=== PATIENT | female | born 1995 | race Caucasian/White ===

== ENCOUNTER 2021-11-18 08:24 | Outpatient (CLI) | payer BC | END 2021-11-18 08:25 | disposition home or self-care (01) | LOC: MRI 08:24 | PROVIDERS: ATTEND Orthopaedic Surgery | DX: M25.562 Pain in left knee (principal); Z98.890 Other specified postprocedural states ==

== ENCOUNTER 2022-07-14 15:49 | Outpatient (CLI) | payer BC | END 2022-07-14 15:50 | disposition home or self-care (01) | LOC: BICRAD 15:49 | PROVIDERS: ATTEND Family Medicine | DX: M25.532 Pain in left wrist (principal) ==

== ENCOUNTER 2023-11-11 19:58 | Inpatient (IN) | payer BC ==
[2023-11-11] MEDS ORDERED: Ondansetron PF 4 MG/2 ML Vial ONE (20:23)
[2023-11-11] MEDS ORDERED: Morphine 4 MG/ML VIAL ONE (20:23)
[2023-11-11 21:01] LABS: #Basophils 0.06 10x3/uL (0.0-0.2); %Basophils 0.6 % (0.0-1.0); %Eosinophils 1.2 % (0.0-10.0); %Lymphocytes 18.6 % (21.0-51.0); %Monocytes 6.9 % (0.0-10.0); %Neutrophils 72.3 % (42.0-75.0); Hemoglobin 13.8 g/dL (12.0-16.0); Mean Corpuscular HGB CONC 33.7 g/dL (32.0-36.0); Mean Corpuscular Hemoglobin 30.3 pg (27.0-31.0); Mean Corpuscular Volume 89.9 fL (78.0-98.0); Mean Platelet Volume 9.3 fL (7.4-10.4); Platelet Count 333 10x3/uL (130-400); RBC Distribution Width 12.5 % (11.5-14.5); Red Blood Cell (RBC) Count 4.56 mill/uL (4.20-5.40)
[2023-11-11 21:13] LABS: ALT (SGPT) 12 U/L (8-55); AST (SGOT) 12 U/L (5-34); Albumin 3.7 g/dL (3.5-5.0); Alkaline Phosphatase 60 U/L (40-110); Anion Gap 14 mmol/L (10-20); BUN (Urea Nitrogen) 16 mg/dL (7.0-18.7); Bilirubin, Total 0.3 mg/dL (0.2-1.2); Calc. Creatinine Clearance 0 mL/min (70-130); Calcium 9.2 mg/dL (7.8-10.44); Carbon Dioxide 20 mmol/L (22-29); Chloride 109 mmol/L (98-107); Estimated GFR 99; Globulin 3.2 g/dL (2.4-3.5); Glucose 99 mg/dL (70-105); Potassium 3.9 mmol/L (3.5-5.1); Protein, Total 6.9 g/dL (6.0-8.3); Sodium 139 mmol/L (136-145)
[2023-11-11 21:16] LABS: INR-International Normal Ratio 1.1; PTT 25.3 sec (22.9-36.1); Prothrombin Time 13.8 sec (12.0-14.7)
[2023-11-11] MEDS ORDERED: Dextrose 50% Abboject 50 ML SYRINGE SLOW IVP PRN (21:31)
[2023-11-11] MEDS ORDERED: Promethazine HCl 25 MG/ML VIAL IM PRN (21:31)
[2023-11-11] MEDS ORDERED: Acetaminophen 325 MG TAB PO PRN (21:31)
[2023-11-11] MEDS ORDERED: Glucagon 1 MG/ML KIT IM PRN (21:31)
[2023-11-11] MEDS ORDERED: Dextrose 5% in Water 1,000 ML IV PRN (21:31)
[2023-11-11] MEDS ORDERED: PROPOFOL 20 ML ONE ×2 (21:33→21:39)
[2023-11-11] MEDS ORDERED: fentaNYL 50 mcg/mL 1 mL Vial ONE (21:39)
[2023-11-11 22:35] VITALS: BMI 48.7
[2023-11-11] MEDS: Morphine 4 MG/ML VIAL SLOW IVP PRN (22:56)
[2023-11-12] MEDS: traMADol HCl 50 MG TAB PO PRN ×2 (00:51→13:23)
[2023-11-12] MEDS: Ondansetron ODT 4 MG TAB PO PRN (05:08)
[2023-11-12 05:55] LABS: #Basophils 0.03 10x3/uL (0.0-0.2); %Basophils 0.3 % (0.0-1.0); %Eosinophils 0.3 % (0.0-10.0); %Lymphocytes 12.7 % (21.0-51.0); %Monocytes 6.2 % (0.0-10.0); %Neutrophils 80.2 % (42.0-75.0); Hematocrit 38.1 % (36.0-47.0); Hemoglobin 12.9 g/dL (12.0-16.0); Mean Corpuscular HGB CONC 33.9 g/dL (32.0-36.0); Mean Corpuscular Hemoglobin 31.2 pg (27.0-31.0); Mean Corpuscular Volume 92.3 fL (78.0-98.0); Mean Platelet Volume 9.1 fL (7.4-10.4); Platelet Count 337 10x3/uL (130-400); RBC Distribution Width 12.5 % (11.5-14.5); Red Blood Cell (RBC) Count 4.13 mill/uL (4.20-5.40)
[2023-11-12 06:23] LABS: Anion Gap 12 mmol/L (10-20); BUN (Urea Nitrogen) 14 mg/dL (7.0-18.7); Calc. Creatinine Clearance 242 mL/min (70-130); Calcium 8.7 mg/dL (7.8-10.44); Carbon Dioxide 22 mmol/L (22-29); Chloride 108 mmol/L (98-107); Estimated GFR 101; Glucose 122 mg/dL (70-105); Potassium 4.3 mmol/L (3.5-5.1); Sodium 138 mmol/L (136-145)
[2023-11-12] MEDS ORDERED: CEFAZOLIN 2 GM in Sodium Chloride 0.9% 100 ML IVPB SCH ×2 (08:00→18:00)
[2023-11-12 08:04] VITALS: BP 128/84; TEMP 98.3
[2023-11-12] MEDS ORDERED: Bupivacaine PF 0.5% 30 ML VIAL ONE (08:25)
[2023-11-12] MEDS ORDERED: fentaNYL 50 mcg/mL 1 mL Vial ONE ×3 (08:49→12:13)
[2023-11-12] MEDS ORDERED: Midazolam HCl 2 mg/2 ml Vial ONE ×2 (08:49→10:18)
[2023-11-12] MEDS ORDERED: Rocuronium Bromide 10 MG/ML (10ML VIAL) ONE ×2 (10:00→10:01)
[2023-11-12] MEDS ORDERED: Lidocaine 2% PF 100 mg/5 ml Syringe ONE (10:00)
[2023-11-12] MEDS ORDERED: fentaNYL PF 100 MCG/2 ML SYRINGE ONE (10:00)
[2023-11-12] MEDS ORDERED: PROPOFOL 20 ML ONE (10:00)
[2023-11-12] MEDS ORDERED: Dexamethasone 20 MG/5 ML VIAL ONE (10:01)
[2023-11-12] MEDS ORDERED: Ondansetron PF 4 MG/2 ML Vial ONE (10:01)
[2023-11-12] MEDS ORDERED: Glycopyrrolate 0.2 MG/ML 5 ML SYRINGE ONE (10:05)
[2023-11-12] MEDS ORDERED: NEOSTIGMINE 3 MG/3 ML SYRINGE ONE (10:05)
[2023-11-12] MEDS ORDERED: CEFAZOLIN 1 GM VIAL ONE (10:33)
[2023-11-12] MEDS ORDERED: Meperidine HCl/PF 25 MG (1 mL) VIAL ONE (11:46)
[2023-11-12] MEDS ORDERED: HYDROmorphone 0.5 MG/0.5 ML SYRINGE ONE ×2 (12:06→12:13)
[2023-11-12] MEDS: Acetaminophen 325 MG TAB PO SCH (13:23)
[2023-11-12] MEDS: traMADol HCl 50 MG TAB PO SCH (13:23)
[2023-11-12] MEDS: Senokot S 8.6-50 MG TAB PO SCH (13:26)
[2023-11-12] MEDS: Polyethylene Glycol 3350 17 GM Packet PO SCH (13:26)
[2023-11-12] MEDS: Famotidine 20 MG TAB PO SCH (13:27)
[2023-11-12] MEDS: DULoxetine 60 MG CAP PO SCH (13:27)
[2023-11-12] MEDS: Enoxaparin 40 MG (0.4 mL) SYRINGE SC SCH (16:34)
[2023-11-12] MEDS ORDERED: traZODone HCl 50 MG TAB PO SCH (21:00)
== END 2023-11-12 17:10 | disposition home or self-care (01) | DRG 494 ==
LOC: ERS 19:58 → SURG B 21:31
PROVIDERS: ADMIT Student in an Organized Health Care Education/Training Program; ATTEND Student in an Organized Health Care Education/Training Program
PROC: 0QSH04Z Reposition Left Tibia with Internal Fixation Device, Open Approach (ICD-10-PCS; principal; 2023-11-12)
DX: S82.852A Displaced trimalleolar fracture of left lower leg, initial encounter for closed fracture (principal); W18.30XA Fall on same level, unspecified, initial encounter; F41.9 Anxiety disorder, unspecified; F32.A Depression, unspecified; Z79.899 Other long term (current) drug therapy
CPT/HCPCS: 27840; 36415; 80048; 80053; 85025; 85610; 85730; 96374; 96375; 99152; C1713; G0390; J0665; J0690; J1100; J1170; J1650; J2001; J2175; J2250; J2272; J2405; J2704; J3010; Q0162